=== PATIENT | female | born 1985 | race Caucasian/White ===

== ENCOUNTER 2018-10-16 20:35 | Emergency (ER) | payer MEDICARE, MEDICAID ==
[~2018-10-16] VITALS: Ht 144.8 cm; Wt 89.8 kg
[2018-10-16 20:59] VITALS: BP 129/71
[2018-10-16] MEDS ORDERED: ACETAMINOPHEN 650 mg PER 20 mL UD PO ONE (22:45)
== END 2018-10-17 00:28 | disposition home or self-care (01) ==
LOC: ER 20:44
DX: S05.12XA Contusion of eyeball and orbital tissues, left eye, initial encounter (principal); W18.09XA Striking against other object with subsequent fall, initial encounter; Y93.89 Activity, other specified; Y92.098 Other place in other non-institutional residence as the place of occurrence of the external cause; Y99.8 Other external cause status
CPT/HCPCS: 70450; 72125

== ENCOUNTER 2019-09-07 21:31 | Emergency (ER) | payer MEDICARE, MEDICAID ==
[~2019-09-07] VITALS: Ht 157.5 cm; Wt 90.7 kg
[2019-09-08 00:50] VITALS: BP 118/77
== END 2019-09-08 00:54 | disposition home or self-care (01) ==
LOC: EDBD 21:31 → ER 21:32
DX: S93.492A Sprain of other ligament of left ankle, initial encounter (principal); W18.39XA Other fall on same level, initial encounter; Y93.01 Activity, walking, marching and hiking; Y92.89 Other specified places as the place of occurrence of the external cause; Y99.8 Other external cause status
CPT/HCPCS: 73600

== ENCOUNTER 2020-11-27 20:47 | Emergency (ER) | payer MEDICARE, MEDICAID ==
[~2020-11-27] VITALS: Ht 144.8 cm; Wt 86.2 kg
[2020-11-27 21:24] LABS: Urine Bacteria NONE SEEN /hpf (None Seen); Urine Blood 3+ /uL (Negative); Urine Mucus FEW (None Seen); Urine Specific Gravity 1.021 (1.001-1.035); Urine WBC 72 /hpf (0 - 5)
[2020-11-27] MEDS ORDERED: ONDANSETRON HCL 4 MG/2 ML VIAL IV ONE (21:30)
[2020-11-27] MEDS ORDERED: MORPHINE SULFATE 4 MG/ML SYR/VIAL IV ONE (21:30)
[2020-11-27] MEDS ORDERED: SODIUM CHLORIDE 0.9% 500 ML IVB ONE (21:30)
[2020-11-27 21:36] LABS: Basophils # (auto) 0.1 10 ^3/uL (0-0.2); Eosinophils # (auto) 0.1 10 ^3/uL (0-0.8); Hemoglobin 13.9 g/dL (12.2-16.2); Monocytes # (auto) 0.6 10 ^3/uL (0-1.3); Neutrophils # (auto) 8.1 10 ^3/uL (1.6-8.6); Nucleated Red Blood Cells % 0.1 %; White Blood Cell 11.4 10^3/uL (4.4-10.8)
[2020-11-27 21:38] LABS: Basophils % (auto) 1.1 % (0.0-2.0); Eosinophils % (auto) 0.6 % (0.0-7.0); Hematocrit 40.8 % (36.0-46.0); Lymphocytes # (auto) 2.5 10 ^3/uL (0.4-5.4); Lymphocytes % (auto) 22.2 % (10.0-50.0); Mean Corpuscular Hemoglobin 33.6 pg (28.0-32.0); Mean Corpuscular Volume 98.9 fL (80.0-100.0); Monocytes % (auto) 5.1 % (0.0-12.0); Platelet Count (auto) 455 10^3/uL (140-450); Red Blood Cells 4.13 10^6/uL (4.0-5.20); Red Cell Distribution Width 14.2 % (11.8-14.3)
[2020-11-27 21:47] LABS: Albumin 3.5 g/dL (3.4-5.0); Calcium 8.8 mg/dL (8.5-10.1)
[2020-11-27 21:52] LABS: Bilirubin, Total 0.4 mg/dL (0.2-1.0); Total Protein 8.2 g/dL (6.4-8.2)
[2020-11-27 23:06] VITALS: BP 115/70
[2020-11-27] MEDS ORDERED: cefTRIAXone 1GM/50ML D5W 50 ML IV ONE (23:30)
== END 2020-11-28 00:16 | disposition home or self-care (01) ==
LOC: ER 20:51
DX: N39.0 Urinary tract infection, site not specified (principal); N94.6 Dysmenorrhea, unspecified
CPT/HCPCS: 36415; 74176; 80053; 81001; 82150; 83690; 83735; 84702; 85025; 93005; 96361; 96365; 96375; 99285; J0696; J2270; J2405

== ENCOUNTER 2023-11-23 08:07 | Inpatient (IN) | payer MEDICARE, MEDICAID ==
[~2023-11-23] VITALS: Ht 152.4 cm; Wt 88.7 kg
[2023-11-23 09:11] LABS: Basophils # (auto) 0.1 10 ^3/uL (0-0.2); Basophils % (auto) 1.2 % (0.0-2.0); Eosinophils # (auto) 0 10 ^3/uL (0-0.8); Eosinophils % (auto) 0.3 % (0.0-7.0); Hematocrit 41.6 % (36.0-46.0); Hemoglobin 14.1 g/dL (12.2-16.2); Lymphocytes # (auto) 0.4 10 ^3/uL (0.4-5.4); Lymphocytes % (auto) 4.3 % (10.0-50.0); Mean Corpuscular Hemoglobin 33.6 pg (28.0-32.0); Mean Corpuscular Hgb Conc. 33.9 g/dL (32.0-36.0); Mean Corpuscular Volume 99.1 fL (80.0-100.0); Monocytes # (auto) 0.7 10 ^3/uL (0-1.3); Monocytes % (auto) 7.5 % (0.0-12.0); Neutrophils # (auto) 7.9 10 ^3/uL (1.6-8.6); Neutrophils % (auto) 86.7 % (37.0-80.0); Red Blood Cells 4.19 10^6/uL (4.0-5.20); White Blood Cell 9.1 10^3/uL (4.4-10.8)
[2023-11-23 09:34] LABS: Alanine Aminotransferase 20 U/L (7-40); Albumin 4.2 g/dL (3.2-4.8); Alkaline Phosphatase 72 U/L (46-116); Anion Gap 5 (5-15); Aspartate Aminotransferase 25 U/L (13-40); BUN/Creatinine Ratio 18.1 (10.0-20.0); Blood Urea Nitrogen 15 mg/dL (9-23); Calcium 9.2 mg/dL (8.5-10.1); Carbon Dioxide 28 mmol/L (20-30); Chloride 104 mmol/L (98-107); Glucose 85 mg/dL (74-106); Potassium 4.7 mmol/L (3.5-5.1); Sodium 137 mmol/L (136-145)
[2023-11-23 09:35] LABS: Bilirubin, Total 0.5 mg/dL (0.2-1.0); Total Protein 6.9 g/dL (5.7-8.2)
[2023-11-23] MEDS ORDERED: DOCUSATE SOD 100 MG CAP PO PRN (12:15)
[2023-11-23] MEDS: SODIUM CHLOR 0.9% PF (SALINE LOCK) 10ML VIAL/SYR IV SCH (16:58)
[2023-11-23 18:02] LABS: Magnesium 1.9 mg/dL (1.6-2.6)
[2023-11-24] VITALS (11 sets, daily range): BP systolic 93–121; BP diastolic 44–76; PULSE 57–78; RESP 16–18; TEMP 97.4–98.8; O2SAT 92–96
[2023-11-24] MEDS: guaiFENesin-DM 100/10mg/5ml SYR PO PRN (01:28)
[2023-11-24] MEDS: ACETAMINOPHEN 325 MG TAB PO PRN (01:30)
[2023-11-24 02:44] LABS: COVID19 ANTIGEN SOFIA FIA NEGATIVE (NEGATIVE)
[2023-11-24 02:46] LABS: Rapid Influenza A Positive (Negative); Rapid Influenza B Positive (Negative)
[2023-11-24 03:20] LABS: Rapid Strep A Screen-Throat Negative
[2023-11-24] MEDS: ENOXAPARIN SOD 40 MG/0.4 ML SYRINGE SC SCH (09:13)
[2023-11-24] MEDS ORDERED: LEVO25TA6 PO (09:20)
[2023-11-24] MEDS ORDERED: [UNRECOGNIZED DRUG - CODE] IM (09:20)
[2023-11-24] MEDS ORDERED: ALBU2TAB11 PO (09:20)
[2023-11-24] MEDS ORDERED: ROSU5TAB5 PO (09:20)
[2023-11-24] MEDS: levoFLOXacin 500MG 100 ML IV ONE (10:15)
[2023-11-24] MEDS: LEVOTHYROXINE SODIUM 25 MCG TAB PO ONE (10:15)
[2023-11-24] MEDS: OSELTAMIVIR 75 MG CAP PO ONE (10:15)
[2023-11-24 14:00] LABS: Urine Bacteria FEW /hpf (None Seen); Urine Blood Negative /uL (Negative); Urine Clarity Clear (Clear); Urine Protein, UAD Negative (Negative); Urine Specific Gravity 1.006 (1.001-1.035); Urine Urobilinogen Normal (Negative); Urine WBC 1 /hpf (0 - 5); Urine pH 6.5 (5.0-8.0)
[2023-11-24 14:02] LABS: Urine Color STRAW (Yellow)
[2023-11-24 14:09] LABS: Amphetamine Screen, Urine Neg (NEGATIVE); Barbiturate Scree,Urine Neg (NEGATIVE); Benzodiazephine Screen, Urine Neg (NEGATIVE); Cannabinoid Screen, Urine Neg (NEGATIVE); Cocaine Screen, Urine Neg (NEGATIVE); Opiate Scree,Urine Neg (NEGATIVE); Phencyclidine Screen, Urine Neg (NEGATIVE)
[2023-11-24] MEDS: ATORVASTATIN 20 MG TAB PO SCH (21:31)
[2023-11-24] MEDS: OSELTAMIVIR 75 MG CAP PO SCH (21:31)
[2023-11-25] VITALS (7 sets, daily range): BP systolic 92–104; BP diastolic 46–56; PULSE 54–68; RESP 16–20; TEMP 97.5–98.5; O2SAT 92–97
[2023-11-25] MEDS: LEVOTHYROXINE SODIUM 25 MCG TAB PO SCH (06:05)
[2023-11-25 07:14] LABS: Basophils # (auto) 0 10 ^3/uL (0-0.2); Eosinophils # (auto) 0 10 ^3/uL (0-0.8); Eosinophils % (auto) 0.9 % (0.0-7.0); Hematocrit 40.6 % (36.0-46.0); Hemoglobin 13.4 g/dL (12.2-16.2); Lymphocytes # (auto) 1.5 10 ^3/uL (0.4-5.4); Lymphocytes % (auto) 32.7 % (10.0-50.0); Mean Corpuscular Hemoglobin 33.2 pg (28.0-32.0); Mean Corpuscular Hgb Conc. 33.1 g/dL (32.0-36.0); Mean Corpuscular Volume 100.5 fL (80.0-100.0); Monocytes # (auto) 0.6 10 ^3/uL (0-1.3); Neutrophils # (auto) 2.5 10 ^3/uL (1.6-8.6); Neutrophils % (auto) 53.4 % (37.0-80.0); Nucleated Red Blood Cells % 0.2 %; Red Blood Cells 4.03 10^6/uL (4.0-5.20); White Blood Cell 4.6 10^3/uL (4.4-10.8)
[2023-11-25 07:27] LABS: Chloride 106 mmol/L (98-107); Potassium 3.9 mmol/L (3.5-5.1); Sodium 139 mmol/L (136-145)
[2023-11-25 07:28] LABS: Anion Gap 5 (5-15); Carbon Dioxide 28 mmol/L (20-30)
[2023-11-25 07:29] LABS: Calcium 8.9 mg/dL (8.5-10.1)
[2023-11-25 07:33] LABS: Glucose 78 mg/dL (74-106)
[2023-11-25 07:34] LABS: BUN/Creatinine Ratio 12.3 (10.0-20.0); Blood Urea Nitrogen 10 mg/dL (9-23)
[2023-11-25] MEDS: ONDANSETRON HCL 4 MG/2 ML VIAL IV PRN (10:31)
[2023-11-25] MEDS: levoFLOXacin 500MG 100 ML IV SCH (10:32)
[2023-11-25] MEDS: THROAT LOZENGES(CEPASTAT) MT PRN (14:18)
[2023-11-25] MEDS: MELATONIN 5 MG TAB PO ONE (22:00)
[2023-11-26] VITALS (7 sets, daily range): BP systolic 95–114; BP diastolic 54–63; PULSE 59–68; RESP 16–20; TEMP 97.5–98.3; O2SAT 91–93
[2023-11-26] MEDS ORDERED: POTASSIUM CHL 20 Meq TABLET PO ONE (09:30)
[2023-11-26] MEDS: POTASSIUM EFFERVESENT TAB 25 MEQ PO ONE (10:48)
[2023-11-26] MEDS: FUROSEMIDE 20 MG TAB PO ONE (10:56)
[2023-11-27 05:00] VITALS: BP 91/54; PULSE 64; RESP 16; TEMP 97.4; O2SAT 91
[2023-11-27 06:07] LABS: Basophils # (auto) 0 10 ^3/uL (0-0.2); Basophils % (auto) 0.7 % (0.0-2.0); Eosinophils # (auto) 0.1 10 ^3/uL (0-0.8); Eosinophils % (auto) 1.3 % (0.0-7.0); Hematocrit 43.7 % (36.0-46.0); Hemoglobin 14.4 g/dL (12.2-16.2); Lymphocytes # (auto) 2.6 10 ^3/uL (0.4-5.4); Lymphocytes % (auto) 53.1 % (10.0-50.0); Mean Corpuscular Volume 99.9 fL (80.0-100.0); Monocytes # (auto) 0.4 10 ^3/uL (0-1.3); Neutrophils # (auto) 1.7 10 ^3/uL (1.6-8.6); Neutrophils % (auto) 35.9 % (37.0-80.0); Red Blood Cells 4.38 10^6/uL (4.0-5.20); Red Cell Distribution Width 13.7 % (11.8-14.3); White Blood Cell 4.8 10^3/uL (4.4-10.8)
[2023-11-27 06:20] LABS: Chloride 103 mmol/L (98-107); Potassium 3.7 mmol/L (3.5-5.1); Sodium 139 mmol/L (136-145)
[2023-11-27 06:21] LABS: Anion Gap 6 (5-15); Carbon Dioxide 30 mmol/L (20-30)
[2023-11-27 06:26] LABS: BUN/Creatinine Ratio 12.3 (10.0-20.0); Blood Urea Nitrogen 10 mg/dL (9-23); Glucose 87 mg/dL (74-106)
[2023-11-27 08:00] VITALS: PULSE 60; RESP 20
[2023-11-27 09:00] VITALS: BP 98/68; PULSE 60; RESP 20; TEMP 98.3; O2SAT 92
[2023-11-27] MEDS ORDERED: LEVO500T91 PO (09:14)
[2023-11-27] MEDS ORDERED: TAMIFLU PO (09:14)
[2023-11-27 11:11] VITALS: BP 98/68; PULSE 60; RESP 20; TEMP 98.3; O2SAT 94
== END 2023-11-27 12:15 | disposition home or self-care (01) | DRG 178 ==
LOC: EDBD 08:07 → ER 08:07 → TELE 12:12 → TELE-WESTW 23:31 → TELE-CENTR 11-24 03:58 → CENTRAL 11-26 09:30
PROVIDERS: ADMIT Internal Medicine; ATTEND Internal Medicine
DX: J10.08 Influenza due to other identified influenza virus with other specified pneumonia (principal); Q21.0 Ventricular septal defect; J15.69 Pneumonia due to other Gram-negative bacteria; J15.9 Unspecified bacterial pneumonia; E03.9 Hypothyroidism, unspecified; J45.909 Unspecified asthma, uncomplicated; K04.7 Periapical abscess without sinus; E78.5 Hyperlipidemia, unspecified; E55.9 Vitamin D deficiency, unspecified; S09.90XA Unspecified injury of head, initial encounter; X58.XXXA Exposure to other specified factors, initial encounter; Z20.822 Contact with and (suspected) exposure to COVID-19; E53.8 Deficiency of other specified B group vitamins; E66.01 Morbid (severe) obesity due to excess calories; Q90.9 Down syndrome, unspecified; Y93.89 Activity, other specified; Y92.89 Other specified places as the place of occurrence of the external cause; Y99.8 Other external cause status; Z68.39 Body mass index [BMI] 39.0-39.9, adult
CPT/HCPCS: 36415; 70450; 71045; 80048; 80053; 80061; 80307; 81001; 82607; 83036; 83735; 83880; 84443; 84484; 84702; 85025; 87070; 87426; 87804; 87880; 93005; 93306; 93886; 96374; G0378; J1956; J2405